=== PATIENT | female | born 1975 | race Two or more races ===

== ENCOUNTER 2024-10-11 07:00 | Inpatient (IN) | payer OTHER ==
[~2024-10-11] VITALS: Ht 160 cm; Wt 89.8 kg
[2024-10-11 08:48] VITALS: BP 120/77
[2024-10-11 08:49] VITALS: BP 115/74
[2024-10-11 08:59] LABS: HEMATOCRIT 35.5 % (36.0-45.00); HEMOGLOBIN 11.7 g/dL (12.0-15.00); MEAN CELL VOLUME 85.1 fL (80.00-100.00); MEAN CORPUSCULAR HEMOGLOBIN 28.1 pg (27.00-32.0); PLATELET COUNT 202 K/uL (150-450); RED BLOOD COUNT 4.17 M/uL (4.00-6.00); RED CELL DISTRIBUTION WIDTH 15.2 % (11.5-14.5)
[2024-10-11 09:10] LABS: URINE APPEARANCE Clear; URINE BILIRRUBIN Negative (NEGATIVE); URINE BLOOD Negative; URINE COLOR Yellow; URINE GLUCOSE Negative (NEGATIVE); URINE KETONE Negative (NEGATIVE); URINE LEUKOCYTE Negative; URINE NITRATE Negative; URINE PROTEIN Negative (NEGATIVE); URINE UROBILINOGEN 0.2 E.U./dl
[2024-10-11 09:15] LABS: URINE BACTERIA 29.3 uL (0.0-1933); URINE EPITHELIAL CELLS 2.5 uL (0.0-38.8); URINE RBC 20.4 uL (0.0-20.8)
[2024-10-11 09:20] LABS: INR 0.98; PARTIAL THROMBOPLASTIN TIME 29.4 SECONDS (22.0-34.0); PROTHROMBIN TIME 10.7 SECONDS (9.0-11.5)
[2024-10-11 09:22] LABS: URINE WBC 1.1 uL (0.0-23.2)
[2024-10-11 10:28] LABS: ALBUMIN 3.7 gm/dL (3.4-5.0); BILIRUBIN TOTAL 0.34 mg/dL (0.3-1.2); CALCIUM 8.6 mg/dL (8.5-10.1); CREATININE SERUM 0.94 mg/dL (0.55-1.02); GFR 63.56; GLOBULINA 3.4 G/DL (2.4-3.5); POTASSIUM 4.09 mEq/L (3.5-5.1); TOTAL PROTEIN 7.1 gm/dL (6.4-8.2)
[2024-10-17] MEDS ORDERED: POVIDONE-IODINE 118 ML BOTT TOP ONE (14:30)
[2024-10-17] MEDS ORDERED: METRONIDAZOLE/SODIUM CHLORIDE 500 MG/100 ML PIGGYBACK IV SCH (14:30)
[2024-10-17] MEDS ORDERED: CEFOXITIN SODIUM 2,000 MG VIAL IV SCH (14:30)
[2024-10-17] MEDS ORDERED: VISTASEAL DUAL APPICATOR 1 EACH APPL TOP ONE (16:45)
[2024-10-17] MEDS ORDERED: THROMBIN,HU/FIBRINOGEN/CALCIUM 10 ML SYRINGE TOP ONE (16:45)
[2024-10-17] MEDS ORDERED: RINGERS SOLUTION,LACTATED 1,000 ML IV SCH (17:00)
[2024-10-17] MEDS ORDERED: MEPERIDINE HCL/PF 50 MG/ML VIAL IM PRN (17:15)
[2024-10-17] MEDS ORDERED: KETOROLAC TROMETHAMINE 30 MG VIAL IV PRN (17:15)
[2024-10-17] MEDS ORDERED: PROMETHAZINE HCL 50 MG/ML AMPUL IM PRN (17:15)
[2024-10-17] MEDS ORDERED: MORPHINE SULFATE 4 MG/ML VIAL IV ONE ×2 (17:25→18:00)
[2024-10-17] MEDS ORDERED: SIMETHICONE 125 MG CAPSULE PO SCH (18:00)
[2024-10-17 18:41] VITALS: BP 115/74
[2024-10-17 20:10] VITALS: O2SAT 100
[2024-10-17] MEDS ORDERED: FAMOTIDINE/PF 20 MG/2 ML VIAL IV SCH (21:00)
[2024-10-17 23:19] LABS: HEMATOCRIT 34.5 % (36.0-45.00); HEMOGLOBIN 11.5 g/dL (12.0-15.00); MEAN CELL VOLUME 84.2 fL (80.00-100.00); MEAN CORPUSCULAR HEMOGLOBIN 27.9 pg (27.00-32.0); MEAN CORPUSCULAR HGB CONC 33.2 g/dl (32.0-36.0); PLATELET COUNT 196 K/uL (150-450); RED CELL DISTRIBUTION WIDTH 15.8 % (11.5-14.5)
[2024-10-18 00:58] VITALS: BP 97/68
[2024-10-18] MEDS ORDERED: ACETAMINOPHEN-1 EAC2 PO (08:38)
[2024-10-18] MEDS ORDERED: NAPR500T14 PO (08:38)
[2024-10-18] MEDS ORDERED: FAMOTIDINE20 MG PO (08:38)
[2024-10-18] MEDS ORDERED: NAPROXEN 500 MG TABLET PO PRN (08:45)
[2024-10-18] MEDS ORDERED: ACETAMINOPHEN WITH CODEINE 1 UDTAB TABLET PO PRN (08:45)
[2024-10-18 08:49] VITALS: BP 121/70
[2024-10-18] MEDS ORDERED: FAMOtidine 20 MG TABLET PO NR (10:45)
[2024-10-18] MEDS ORDERED: FAMOtidine 20 MG TABLET PO SCH (21:00)
== END 2024-10-18 12:12 | disposition home or self-care (01) | DRG 743 ==
LOC: SURG 10-17 07:00 → O/R 10-17 07:21 → SURG 10-17 11:30 → OB/GYN 10-17 17:26
PROVIDERS: ADMIT Obstetrics & Gynecology; ATTEND Obstetrics & Gynecology
PROC: 0UT7FZZ Resection of Bilateral Fallopian Tubes, Via Natural or Artificial Opening With Percutaneous Endoscopic Assistance (ICD-10-PCS; 2024-10-17)
PROC: 0TJB8ZZ Inspection of Bladder, Via Natural or Artificial Opening Endoscopic (ICD-10-PCS; 2024-10-17)
PROC: 0UT9FZZ Resection of Uterus, Via Natural or Artificial Opening With Percutaneous Endoscopic Assistance (ICD-10-PCS; principal; 2024-10-17 11:30)
DX: D25.1 Intramural leiomyoma of uterus (principal); D25.0 Submucous leiomyoma of uterus; D25.2 Subserosal leiomyoma of uterus; R10.2 Pelvic and perineal pain; N72 Inflammatory disease of cervix uteri; N81.11 Cystocele, midline; Z20.822 Contact with and (suspected) exposure to COVID-19